=== PATIENT | female | born 2000 | race Caucasian/White ===

== ENCOUNTER 2025-05-21 22:42 | Emergency (ER) | payer OTHER, SELFPAY ==
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
[2025-05-21 22:44] VITALS: BP 108/58; PULSE 83; RESP 16; O2SAT 98; BMI 19.2
--- OUTSIDE RECORDS SUMMARY | 2025-05-21 23:12 | XMS_ITS | Clinical Summary ---
Author Organization [facility] Address [address] [place] [address] Care Team Providers Care Mine Environmental Engineer Name Role Phone Unavailable Primary Care Provider Unavailabl e Allergies No known active allergies Medications hydrOXYzine HCl (ATARAX) 25 MG tabletIndicatio ns:Anxiety Take 1 tablet (25 mg total) by mouth once. 1/2 to 1 tab by mouth as needed for anxiety, agitation up to twice a day 30 tablet 9 Active Active Problems Problem Noted Date Diagnosed Date Depression 01/15/2019 Social History Tobacco Use Types Packs/Day Years Used Date Smoking Tobacco: Never Assessed Comments No Sex and Gender Information Value Date Recorded Sex Assigned at Not on file Legal Sex Female 5:32 PM EDT Gender Identity Not on file Sexual Orientation Not on file Last Filed Vital Signs Vital Sign Reading Time Taken Comments Blood Pressure 98/54 01/17/2019 8:58 AM EDT Pulse 100 01/17/2019 8:58 AM EDT Temperature 36.4 C (97.6 F) 01/17/2019 8:56 AM EDT Respiratory Rate 16 01/17/2019 8:56 AM EDT Oxygen Saturation 98% 01/15/2019 8:45 PM EDT Inhaled Oxygen Concentration - - Weight 52.6 kg (116 lb) 01/15/2019 8:45 PM EDT Height 157.5 cm (5' 2 ) 01/15/2019 8:45 PM EDT Body Mass Index 21.22 01/15/2019 8:45 PM EDT Plan of Treatment Health Maintenance Due Date Last Done Comments Hepatitis C Virus Screening 2002 HIV Screening 10/26/2015 HPV Vaccines (1 - 3-dose series) 2017 DTaP/Tdap/Td Vaccines (1 - Tdap) 2021 Hepatitis B Vaccines (1 of 3 - 19+ 3-dose series) 2021 Pap Smear (Ages 21-65) 10/26/2023 Influenza Vaccine 03/24/2025 COVID-19 Vaccine (2023-2 5 season) 2025 Pneumococcal Vaccine: Pediat james (0-5 Years) and At-Risk Patients (6 to 49 Years) Aged Out No longer eligible b ased on patient's age to complete this topic Insurance [employer] Advance Directives * Full Code (Latest Code Status on File) Date Activated Date Inactivated Comments 01/15/2019 9:08 PM
--- OUTSIDE RECORDS SUMMARY | 2025-05-21 23:12 | XMS_ITS | Clinical Summary ---
Author Organization [facility] 's Address [address] [place] [address] Care Team Providers Care Devulcanizer Operator Name Role Phone Franco Rivas MD Primary Care Provider [phone] Source Comments Please note that some or all of the patient's information could have additional privacy protections. State laws allow health care providers to render certain types of treatment to minors without parental consent. Please do not assume that this information can be shared solely by obtaining just the consent of the patient's parent/guardian. Please determine if all or part of the patient's care was rendered without parent/guardian involvement. And, if so, obtain the minor's consent prior to disclosure.[facility] Allergies No known active allergies Medications No known medications Active Problems Problem Noted Date Diagnosed Date Suicidal ideation 01/14/2019 Social History Tobacco Use Types Packs/Day Years Used Date Smoking Tobacco: Never Assessed Comments Unknown Sex and Gender Information Value Date Recorded Sex Assigned at Not on file Legal Sex Female 10:03 PM EDT Gender Identity Not on file Sexual Orientation Not on file Last Filed Vital Signs Vital Sign Reading Time Taken Comments Blood Pressure 103/68 01/15/2019 2:25 PM EDT Pulse 84 01/15/2019 2:25 PM EDT Temperature 36.6 C (97.9 F) 01/15/2019 2:25 PM EDT Respiratory Rate 16 01/15/2019 2:25 PM EDT Oxygen Saturation 96% 01/15/2019 2:25 PM EDT Inhaled Oxygen Concentration - - Weight 47.3 kg (104 lb 4.4 oz) 01/15/2019 3:31 P M EDT Height 157.5 cm (5' 2 ) 01/15/2019 3:31 PM EDT Body Mass Index 19.07 01/15/2019 3:31 PM EDT Plan of Treatment Health Maintenance Due Date Last Done Comments DTaP/TDAP/TD VACCINES (1 - Tdap) 2009 ADOLESCENT HIV SCREENING 10/26/2015 COVID-19 Vaccine ( - 2023-2 5 season) 2025 INFLUENZA (#1) 2025 NIRSEVIMAB VACCINES UNDER 8 MONTHS Aged Out No longer eligible based on patient's age to complete this topic Insurance [employer] Care Teams Devulcanizer Operator Relationship Specialty Start Date End Date Franco Rivas MD [address] [place] [address] [phone] PCP - General Emergency Medicine 01/31/19
--- OUTSIDE RECORDS SUMMARY | 2025-05-21 23:12 | XMS_ITS | Encounter Summary ---
Author Organization [facility] Address [address] [place] [address] Phone Care Team Providers Care Financial Assistant Name Role Phone Litzy Bermudez MD Primary Care Provide r Encounter Details Date Type Department Care Team (Late st Contact Info) Description 03/09/2017 Conversion Encounter Pediatric And Adolescent Medicine - [place] [address] [place] [address] [place] [id number] Social History Tobacco Use Types Packs/Day Years Used Date Smoking Tobacco: Never Assessed Comments Unknown Sex and Gender Information Value Date Recorded Sex Assigned at Not on file Legal Sex Female 6:42 PM EDT Gender Identity Not on file Sexual Orientation Straight 05/10/2019 9: 11 PM EDT documented as of this encounter Plan of Treatment Not on file documented as of this encounter Visit Diagnoses Not on filedocumented in this encounter Care Teams Financial Assistant Relationship Specialty Start Date End Date Litzy Bermudez MD [address] [place] [address] PCP - General Pediatrics 05/11/23 08/26/23 documented as of this encounter
--- OUTSIDE RECORDS SUMMARY | 2025-05-21 23:12 | XMS_ITS | Clinical Summary ---
Author Organization [facility] Address [address] [place] [address] Phone Care Team Providers Care Economic Developer Name Role Phone Unavailable Primary Care Provider Unavailabl e Allergies No known active allergies Medications hydrOXYzine 25 MG tablet Take 25 mg by mouth. 9 Active omeprazole 20 MG delayed-release capsuleIndicatio ns:Gastroesophag eal reflux disease with esophagitis TAKE 1 CAPSULE BY MOUTH EVERY DAY AT BEDTIME TRY TO TAKE ON AN EMPTY STOMACH *NEED RECHECK WITHIN 1 MONTH TO DISCUSS* 30 capsule 1 Active clindamycin-priyanka oyl peroxide 1-5% gelIndications:A cne vulgaris Apply topically 2 (two) times a day. 50 g 2 2 Active Additional Information Patient not taking.Reported on 03/12/2022 ferrous sulfate 324 MG tablet delayed-releaseI ndications:Other iron deficiency anemia Take 1 tablet (324 mg total) by mouth daily with breakfast. 30 tablet 1 2 Active Active Problems Problem Noted Date Diagnosed Date Depression 01/15/2019 Overview (05/09/2019): ALFREDA Stone, [facility] Assessment & Plan (06/08/2020 9:15 AM EDT): She refuses to see a therapist. She sates she was told she needs to get her hydroxyzine through a psychiatrist but hasn't by her doctor. She no longer has any left. Suicidal ideation 01/14/2019 Need for vaccination 06/05/2018 Immunizations Immunization Administration Dates Next Due DTaP 5 11/03/2006, 4,03/15/2003,03/02,01/12/2003 HPV, Quadrivalent 08/13/2015,04/03/2015,01/20/20 15 Hep A, ped/adol 02/22/2018,01/24/2016 Hep B, ped/adol 09/06/2003,2002,2002 Hib (HbOC) 01/25/2004, 3,03/02/2003,01/12 IPV 11/03/2006, 4,03/02/2003,01/12 Influenza, injectable, quadr ivalent, preservative free 06/08/2020,05/09/2019,07/31/2017 MMR 11/03/2006,01/25/2004 Meningococcal B Trumenba 06/08/2020 Meningococcal Conj (Menactra) MCV4P 05/09/2019,0 01/19/2015 PPD Test 06/05/2018 Pneumococcal Conjugate 12/09/2004,2002,03/02/2003,01/12 Tdap 01/19/2015 Varicella 11/03/2006,10/26/2003 Family History Medical History Relation Name Comments Diabetes Maternal Grandfather Hyperlipidemia Maternal Grandfather Kidney disease Maternal Grandfather Learning disabilities Maternal Grandfather Thyroid disease Maternal Grandfather Hyperlipidemia Maternal Grandmother Anxiety disorder Paternal Grandfather Depression Paternal Grandfather Diabetes Paternal Grandfather Hearing loss Paternal Grandfather Hyperlipidemia Paternal Grandfather Hypertension Paternal Grandfather Substance abuse Paternal Grandfather Thyroid disease Paternal Grandfather Food allergies Paternal Grandmother Relation Name Status Comments Brother Alive Father Alive Maternal Grandfather Maternal Grandmother Mother Alive Paternal Grandfather Paternal Grandmother Social History Tobacco Use Types Packs/Day Years Used Date Smoking Tobacco: Never Smokeless Tobacco: Never Hunger/Food Answer Date Recorded In the last 12 months, did y ou or your family ever eat less than you felt you should because there wasn't enough money for food? No 05/09/2019 Stable Housing Answer Date Recorded Are you worried that in the next 2 months you may not have stable housing? No 05/09/2019 Transportation Concerns Answer Date Rec orded In the last 12 months, have you or your family ever had to go without healthcare because you didn't have a way to get there? No 05/09/2019 Hazards in Home Answer Date Recorded Think about the place you li ve. Do you have problems with any of the following? Pests (mice or roaches), mold, no/not working smoke detectors, water leaks, no window guards. No 2018 Financing Utilities Answer Date Recorde d In the last 12 months, has t he electric, gas, oil, or water company threatened to shut off your services in your home? No 05/09/2019 Safety at Home Answer Date Recorded Are you or your family worried about feeling saf e in your home? No 05/09/2019 Outside Support Answer Date Recorded Do you feel that you need mo re support from other people or programs to help you care for yourself or your family? No 05/09/2019 Understanding Health Concerns Answer Da te Recorded Do you need help understandi ng your or your child's healthcare needs (diagnosis, medications, plan, etc.)? No 05/09/2019 Financing Health Concerns Answer Date R ecorded In the last 12 months, was t here a time when your child needed to see a doctor or get medications or supplies but could not because of cost? No 05/09/2019 Missing School or Work Answer Date Franc rded Did you or your child miss s chool or work because of a health problem that could have been avoided? No 05/09/2019 Comments No Sex and Gender Information Value Date Recorded Sex Assigned at Not on file Legal Sex Female 6:42 PM EDT Gender Identity Not on file Sexual Orientation Straight 05/10/2019 9: 11 PM EDT Last Filed Vital Signs Vital Sign Reading Time Taken Comments Blood Pressure 100/62 03/12/2022 3:45 PM EDT Pulse 66 03/12/2022 3:45 PM EDT Temperature 36.8 C (98.2 F) 03/12/2022 3:45 PM EDT Respiratory Rate 20 04/20/2019 8:16 AM EDT Oxygen Saturation 99% 03/12/2022 3:45 PM EDT Inhaled Oxygen Concentration - - Weight 46.8 kg (103 lb 3.2 oz) 03/12/2022 3:45 P M EDT Height 158 cm (5' 2.21 ) 02/20/2021 11:37 AM EDT Body Mass Index 18.75 02/20/2021 11:37 AM EDT Plan of Treatment Health Maintenance Due Date Last Done Comments Men B Vaccine (2 of 2 - Trum enba SCDM 2-dose series) 12/07/2020 06/08/2020 Influenza Vaccines (#1) 2025 11/13/19 23, 06/08/2020, 05/09/2019, Additional history exists COVID-19 Vaccine ( - 2023-2 5 season) 2025 DTaP,Tdap,and Td Vaccines (7 - Td or Tdap) 10/23/2032 10/23/2022, 01/19/2015, 11/03/2006, Additional history exists Hepatitis B Vaccines Completed 09/06/2003, 2002, 2002 HIB Vaccines Completed 01/25/2004, 02/22, 03/02/2003, Additional history exists Pneumococcal Vaccine Completed 12/09/2004, 03/15/2003, 03/02/2003, Additional history exists IPV Vaccines Completed 11/03/2006, 10/22, 04/30/2004, Additional history exists MMR Vaccines Completed 11/03/2006, 10/22, 01/25/2004 Varicella Vaccines Completed 11/03/2006, 0 11/03/2006, 10/26/2003 HPV Vaccines Completed 08/13/2015, 03/24, 01/19/2015 Hepatitis A Vaccines Completed 02/22/2018, 01/24/2016, 01/19/2015 Meningococcal Vaccine Completed 05/09/2019, 015 Procedures * Due to [place] [employer] law, this organization might not be sharing sensitive test results. Procedure Name Priority Date/Time Associated Diagnosis Comments CHLAMYDIA AND GONORRHEA, AMPLIFIED Routine 03/12/2022 4:17 PM EDT Frequency of urination from Last 3 Months or Most Recently Relevant to Health Maintenance Results * Due to [place] [employer] law, this organization might not be sharing sensitive test results. * Chlamydia and Gonorrhoea, Amplified (03/12/2022 4:17 PM EDT) Chlamydia Trachomatis, DNA Probe NEGATIVE (NEG) [facility] Comment: No Chlamydia Trachomatis RNA detected in this patient's sample (REFERENCE RANGE/NORMAL VALUE: NOT DETECTED) Note: This test uses machine brush maker- mediated amplification method to detect rRNA from C. Trachomatis URINE GC AMP PROBE NEGATIVE (NEG) [facility] Comment: No Neisseria Gonorrhoeae RNA detected in this patient's sample (REFERENCE RANGE/NORMAL VALUE: NOT DETECTED) NOTE: This test uses machine brush maker-mediated amplification method to detect rRNA from N.Gonorrhoeae. A negative result does not preclude infection. In the case of a negative urine result, testing of an endocervical(female) or urethral (male) specimen is recommended if there is high clinical suspicion of infection. Due to very high sensitivity of Nucleic Acid Amplification Test, false positive results may occur. Therefore, specimen handling is extremely important. In patients in whom the disease is unlikely, additional sample for testing should be considered after an initial positive result. The performance characteristics of this test have not been evaluated in children. The Aptima Combo2 assay is not intended for the evaluation of suspected sexual abuse or for other medico-legal indications. The ordering provider should assess if the patient had consensual sex without risk of sexual abuse. Consult the [facility] if needed. Contact phone number . Therapeutic failure or success cannot be determined with the Aptima Combo2 assay since nucleic acid may persist following appropriate antimicrobial therapy. The Centers for Disease Control and Prevention (CDC) recommends confirmatory retesting using culture or a different nucleic acid amplification test when positive results occur, if indicated. Testing performed or reported by [facility], a Service of [facility], [address] [place] [address] Saulo Hobbs MD, Preschool Teacher Aide [facility]# [id number] Urine (Urine) 03/12/2022 4:1 7 PM EDT 03/13/2022 12:51 AM EDT us Oksana Carty MD LAB MICROBIOLOGY - GENERAL OR DERABLES Final Result [facility] from Last 3 Months or Most Recently Relevant to Health Maintenance [place] [address] [place] [address] BLUE CARD OUT OF STATE
--- OUTSIDE RECORDS SUMMARY | 2025-05-21 23:12 | XMS_ITS | Encounter Summary ---
Author Organization [facility] Address [address] [place] [address] Phone Care Team Providers Care Siebel Developer Name Role Phone Litzy Bermudez MD Primary Care Provide r Reason for Visit * Reason Comments Med Refill Encounter Details Date Type Department Care Team (Late st Contact Info) Description 08/09/2020 Refill Pediatric And Adolescent Medicine - [place] [address] [place] [address] Fallon Baltazar MD [address] [place], [place] [phone] Gastroesophageal reflux disease with esophagitis Social History Tobacco Use Types Packs/Day Years [...] PM EDT documented as of this encounter Miscellaneous Notes * Telephone Encounter - Parvin Taylor LPN - 08/10/2020 10:29 AM EST Refill request for omeprazole from [facility]. Last [facility] 06/08/20 with RG. Omeprazole last prescribed from this office 04/20/19. Of note, patient now resides with father in [place], [place] and current pharmacy is listed as [facility]/[place]. LMOVM to dad's cell to ask if this refill is requested and an update. Current script declined and message forward to tenzin pastrana. documented in this encounter Plan of Treatment Not on file documented as of this encounter Visit Diagnoses Diagnosis Gastroesophageal reflux disease with esophagitis documented in this encounter Care Teams Siebel Developer Relationship Specialty Start Date End Date Litzy Bermudez MD [address] [facility] [place] [address] PCP - General Pediatrics 05/11/23 08/26/23 documented as of this encounter
--- OUTSIDE RECORDS SUMMARY | 2025-05-21 23:12 | XMS_ITS | Clinical Summary ---
Author Organization [facility] Address [address] [place] [address] Care Team Providers Care Provider Network Manager Name Role Phone Shauna Mayberry MD Primary Care Prov ider Social History Tobacco Use Types Packs/Day Years Used Date Smoking Tobacco: Never Assessed Sex and Gender Information Value Date Recorded Sex Assigned at Female 06/08/2024 10:56 AM EDT Gender Identity Not on file Sexual Orientation Not on file Job Start Date Occupation Industry Not on file Not on file Not on file Plan of Treatment Health Maintenance Due Date Last Done Comments Hepatitis B Vaccines (1 of 3 - 3-dose series) 2002 Hepatitis C Screening 2002 COVID-19 Vaccine (#1) 04/27/2003 Depression Screening 2014 Gonorrhea and Chlamydia Screening 10/26/2015 Preventative Health Evaluation 2020 DTap / Tdap / Td (1 - Tdap) 2021 Cervical Cancer Screening (P ap Smear) 10/26/2023 Influenza Vaccine (#1) 2025 Pneumococcal Vaccine Aged Out No long er eligible based on patient's age to complete this topic RSV Ped < 20 months Aged Out No longe r eligible based on patient's age to complete this topic Care Teams Provider Network Manager Relationship Specialty Start Date End Date Shauna Mayberry MD [address] [place] [id number] PCP - General Internal Medicine 06/14/24
--- OUTSIDE RECORDS SUMMARY | 2025-05-21 23:12 | XMS_ITS ---
Author Name [facility] Organization Unknown Care Team Organization Name Specialty Phone Email Start Date End Da te [facility] Jaqui Norton Primary Care 06/23/2023 024
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
--- OUTSIDE RECORDS SUMMARY | 2025-05-21 23:15 | XMS_ITS | Clinical Summary ---
Author Organization [address] [facility] Address [address] [place] [address] Phone Care Team Providers Care Tetryl Nitrator Operator Name Role Phone Shauna Lal MD Primary Care Prov ider Allergies No known active allergies Medications medroxyPROGESTE Sage 150 mg/mL injection INJECT 1 ML BY INTRAMUSCULAR ROUTE FOR 90 DAYS. 4 Active fexofenadine (ALBINO) 180 mg tabletIndicatio ns:Allergic pharyngitis Take 1 tablet (180 mg total) by mouth 1 (one) time each day if needed (allergies). 90 tablet 025 Active Encounters Date Type Department Care Team Description 04/05/2025 2:45 PM EDT Treatment [facility] Occupational Therapy [address] [place] [phone] Jose Barry, CHAVES/L Left wrist tendinitis (Primary Dx) 03/29/2025 2:45 PM EDT Treatment [facility] Occupational Therapy [address] [place] [phone] Jose Barry, CHAVES/L Left wrist tendinitis (Primary Dx) 03/22/2025 2:45 PM EDT Treatment [facility] Occupational Therapy [address] [place] [address] [phone] Jose Barry CHAVES/L Left wrist tendinitis (Primary Dx) 03/16/2025 3:00 PM EDT Evaluation [facility] Occupational Therapy [address] [place] [phone] Becca Tavera OT Left wrist tendinitis 03/16/2025 Plan of Care Documentation [facility] Occupational [facility] [address] [phone] 03/01/2025 10:00 AM EDT Office Visit Adult Medicine [address] [phone] Shauna Diaz MD Allergic pharyngitis (Primary Dx); Sore throat; Left wrist tendinitis 02/28/2025 Telephone Adult [address] [phone] Shauna Diaz MD 02/22/2025 Telephone Adult Medicine [address] [phone] Shauna Diaz MD from Last 3 Months Immunizations Immunization Administration Dates Next Due DTaP (Infanrix) 6wks to less than 7yo 04/30/2004 ,03/15/2003 HPqS-PER-TUN (Pentacel) 2mo to less than 5yo 01/25/2004,03/15/2003,03/02/2003,01/12 DTaP-IPV (Kinrix; Quadracel) 4yo to less than 7yo 11/03/2006 HPV, Quadrivalent 08/13/2015,04/03/2015,01/20/20 15 Hepatitis A Pediatric (Havri x; Vaqta) 12mo to less than 19yo 01/24/2016,01/19/2015 Hepatitis B Pediatric (Enger ix B; Recombivax HB) to less than 20 yo 09/06/2003,2002,2002 IPV Inactivated polio (Ipol) 6wks and older 04/30/2004 Influenza trivalent, 0.5mL, preservative free (Fluarix; FluLaval; Fluzone) ages 6mo and older (Afluria) 3 years and older 11/12/2022,06/08/2020,08/13/2015 MMR, measles mumps and rubel la Live (Priorix; M-M-R II) 12mo and older 01/25/2004 MMRV, measles mumps rubella and varicella live (Proquad) 4yo to less than 7yo 11/03/2006 Meningococcal B, Recombinant (Trumenba) 16yo to less than 24yo 06/08/2020 Meningococcal Polysaccharide 01/19/2015 Pneumococcal Conjugate Vacci ne, 7 Valent 12/09/2004,03/15/2003,03/02/2003,01/12 Tdap Tetanus diptheria acell ular pertussis (Boostrix; Adacel) 7yo and older 10/23/2022,01/19/2015 Varicella live (Varivax) 12m o and older 10/26/2003 Surgical History Surgery Date Site/Laterality Comments WISDOM TOOTH EXTRACTION PROCEDURE: HISTORICAL WISDOM TEETH EXTRACTION Family History Medical History Relation Name Comments No Known Problems Brother No Known Problems Daughter : 01/09/2023 No Known Problems Father Alcohol abuse Maternal Grandfather Other: CA unknown Maternal Grandfather Other: Pancreatitis Maternal Grandfather Diabetes Maternal Grandmother Lung cancer Maternal Grandmother + smoke r No Known Problems Mother Diabetes Paternal Grandfather Heart attack Paternal Grandfather Heart failure Paternal Grandfather No Known Problems Paternal Grandmother Breast cancer Neg Hx Colon cancer Neg Hx Ovarian cancer Neg Hx Stroke Neg Hx Relation Name Status Comments Brother Alive Daughter : 01/09/2023 Alive Father Alive Maternal Grandfather Maternal Grandmother Mother Alive Paternal Grandfather Alive Paternal Grandmother Alive Social History Tobacco Use Types Packs/Day Years Used Date Smoking Tobacco: Never Smokeless Tobacco: Never Tobacco Cessation:Counseling Given: Not Answered Alcohol Use Standard Drinks/Week Comments Never 0 (1 standard drink = 0.6 oz pur e alcohol) Comments No Sex and Gender Information Value Date Recorded Sex Assigned at Female 03/08/2025 10:52 AM EDT Legal Sex Female 11:05 AM EDT Gender Identity Female 03/08/2025 10:52 AM EDT Sexual Orientation Straight 03/08/2025 10 :52 AM EDT Obstetrics History Last Filed Vital Signs Vital Sign Reading Time Taken Comments Blood Pressure 103/66 03/01/2025 9:56 AM EDT Pulse 74 03/01/2025 9:56 AM EDT Temperature 36.4 C (97.5 F) 03/01/2025 9:56 AM EDT Respiratory Rate - - Oxygen Saturation - - Inhaled Oxygen Concentration - - Weight 50.8 kg (112 lb) 03/01/2025 9:56 AM EDT Height 157.5 cm (5' 2 ) 03/01/2025 9:56 AM EDT Body Mass Index 20.49 03/01/2025 9:56 AM EDT Plan of Treatment Upcoming Encounters Date Type Department Care Team (Late st Contact Info) Description 06/19/2025 3:00 PM EDT Office Visit Adult Medicine [facility] [address] [place] [phone] Yokasta Zheng PA [address] [place], [place] Health Maintenance Due Date Last Done Comments Gonorrhea/Chlamydia Screening 2002 Meningococcal B Vaccine (2 of 2 - Trumenba SCDM 2-dose series) 12/07/2020 06/08/2020 Cervical Cancer Screening: Pap Smear 10/26/2023 HIV Screening 03/25/2024 Hepatitis C Screening 03/25/2024 Depression Screening 08/24/2024 Social Influencers of Health Screening 02/15/2025 02/16/2024 COVID-19 Vaccine ( season) 2025 Influenza Vaccine (#1) 2025 , 06/08/2020, 05/09/2019, Additional history exists DTaP,Tdap,and Td Vaccines (7 - Td or Tdap) 10/23/2032 10/23/2022, 01/19/2015, 11/03/2006, Additional history exists Hepatitis B Vaccines Completed 09/06/2003, 2002, 2002 HIB Vaccines Completed 01/25/2004, 10/2003, 03/15/2003, Additional history exists Pneumococcal Vaccine: Pediatrics (0 to 5 Years) and At-Risk Patients (6 to 49 Years) Completed 12/09/2004, 03/15/2003, 03/02/2003, Additional history exists IPV Vaccines Completed 11/03/2006, 10/22, 04/30/2004, Additional history exists MMR Vaccines Completed 11/03/2006, 10/22, 01/25/2004 Varicella Vaccines Completed 11/03/2006, 0 11/03/2006, 10/26/2003 HPV Vaccines Completed 08/13/2015, 03/24, 01/19/2015 Hepatitis A Vaccines Completed 02/22/2018, 01/24/2016, 01/19/2015 Meningococcal ACWY Vaccine Completed 05/09/2019, RSV Immunization Patients Under 20 months Aged Out No longer eligible based on patient's age to complete this topic Goals Goal Patient Goal Type Associated Problems Recent Progress Patient-Stated? Author OT pt goal General Yes Becca Tavera OT Note: To reduce pain in her left wrist for ADLs OT LTGs 4-6 visits General Yes Becca Tavera OT Note: 1- pt will report increased function and decreased symptoms as seen by a QD of 20 or less. 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 4- pt will demo at least 4/5 strength in wrist and forearm Procedures Procedure Name Priority Date/Time Associated Diagnosis Comments POC RAPID STREP A Routine 03/01/2025 10: 16 AM EDT Sore throat from Last 3 Months Results * POC rapid strep A manually resulted (03/01/2025 10:16 AM EDT) Rapid Strep A Screen POC Negative Negative Swab Structure of anterior region of neck / Unknown 03/01/2025 10:16 AM EDT us Shauna Lal MD POINT OF CARE TEST ENTER/EDIT ORDERABLES Final Result from Last 3 Months Insurance [facility] Care Teams Tetryl Nitrator Operator Relationship Specialty Start Date End Date Shauna Lal MD [address] [place] [address] [phone] PCP - General Internal Medicine 08/18/24
[2025-05-22 00:21] LABS: MANUAL DIFF FLAG NO
[2025-05-22 00:33] LABS: Hematocrit 35.8 % (37.0-47.0); Hemoglobin 12.4 g/dl (12.0-16.0); Imm Gran Abs Auto 0.01 X10*3/uL (0.00-0.03); Imm Gran Pct Auto 0.2 % (0.0-0.4); Lymphocytes Absolute Auto 2.7 X10*3/uL (1.2-4.9); Mean Corpuscular HGB Conc 34.6 g/dl (31.0-35.0); Mean Corpuscular Hemoglobin 30.3 pg (27.0-33.0); Mean Corpuscular Volume 87.5 fL (80.0-98.0); NRBC Abs Auto 0.000 X10*3/uL (0.0-0.012); NRBC Pct Auto 0.0 /100WBC (0.0-0.2); Platelet Count 246 X10*3/uL (160-400); Red Blood Count 4.09 X10*6/uL (4.20-5.50); White Blood Count 5.7 X10*3/uL (4.8-10.8)
[2025-05-22 00:39] LABS: IDNOW Serial# 55D5AD1C; Influenza B2 Negative (Negative)
[2025-05-22 00:44] LABS: Alanine Aminotransferase 10 U/L (0-31); Albumin Level 4.6 g/dL (3.5-5.0); Alkaline Phosphatase 74 U/L (39-117); Anion Gap 11 (12-20); Aspartate Amino Transferase 18 U/L (5-31); Blood Urea Nitrogen 12 mg/dL (9-16); Calcium 9.5 mg/dL (8.4-10.2); Carbon Dioxide 27 mmol/L (22-29); Chloride 109 mmol/L (96-108); Creatinine Clr Calc Pharmacy 85.0; Estimated Glomerular Filt Rate > 60; Magnesium 2.1 mg/dL (1.6-2.6); Potassium 3.9 mmol/L (3.3-5.1); Sodium 143 mmol/L (135-145); Total Protein 6.8 g/dL (6.5-8.0)
[2025-05-22 00:56] LABS: COVID-19 Test Negative (Negative); IDNOW Serial# 58CA691E
[2025-05-22 02:42] VITALS: BP 99/51; PULSE 63; RESP 16; TEMP 36.7; O2SAT 98
[2025-05-22 02:46] VITALS: BP 99/51; PULSE 63; RESP 16; TEMP 36.7; O2SAT 98
== END 2025-05-22 02:47 | disposition home or self-care (01) ==
PROVIDERS: Physician Assistant Medical; Emergency Provider Emergency Medicine; PCP Internal Medicine
DX: R51.9 Headache, unspecified (principal); H53.149 Visual discomfort, unspecified; R11.0 Nausea
CPT/HCPCS: 70450; 80053; 83735; 84702; 85025; 85652; 86140; 87502; 87635; 96361; 96374; 96375; 99285; J1200; J1885; J2765

== ENCOUNTER → 2025-05-21 23:31 | Outpatient (BNV) | payer OTHER, SELFPAY | PROVIDERS: Emergency Provider Emergency Medicine; PCP Internal Medicine; Visit Provider Radiology Diagnostic Radiology | DX: R51.9 Headache, unspecified (principal); H74.8X1 Other specified disorders of right middle ear and mastoid | CPT/HCPCS: 70450 ==